=== PATIENT | male | born 1955 | race Caucasian/White ===

== ENCOUNTER → 2021-10-12 09:35 | Outpatient (CLI) | payer MEDICARE, SELFPAY ==
[2021-10-12 13:46] LABS: Influenza Control Positive
[2021-10-12 20:05] LABS: SARS-CoV-2 RNA PCR Positive
== END ==
PROVIDERS: PCP Internal Medicine; Visit Provider Internal Medicine
DX: U07.1 COVID-19 (principal)
CPT/HCPCS: 87804; C9803; U0003; U0005

== ENCOUNTER 2021-10-16 08:36 | Outpatient (RCR) | payer MEDICARE, SELFPAY ==
[2021-10-16 09:21] VITALS: BP 152/88; PULSE 91; RESP 18; TEMP 35.7; O2SAT 98
[2021-10-16] MEDS: ACETAMINOPHEN 325 MG TABLET 650 MG PO (09:33)
[2021-10-16] MEDS: diphenhydrAMINE HCl CAP 25 MG CAPSULE PO (09:33)
[2021-10-16] MEDS: FAMOTIDINE 20 MG TABLET PO (09:33)
[2021-10-16 10:55] VITALS: BP 121/76
--- NOTE | 2021-10-19 09:18 | PC.NURSE ---
Called Mr Aviles and he is feeling better, he has no other issues or concerns for us.
== END 2021-10-16 17:00 ==
LOC: AMCINF 08:36
PROVIDERS: PCP Internal Medicine; Visit Provider Internal Medicine Hematology & Oncology
DX: U07.1 COVID-19 (principal); I10 Essential (primary) hypertension
CPT/HCPCS: A9270; M0243; Q0243

== ENCOUNTER 2021-11-20 13:47 | Emergency (ER) | payer MEDICARE, SELFPAY ==
--- NOTE | ~2021-11-20 | XR_ITS ---
EXAMINATION: XR chest 2V EXAM DATE: 11/20/2021 16:13 INDICATION: Shortness of air. TECHNIQUE: Frontal and lateral projections of the chest obtained and reviewed. There is no prior harpal dy for comparison. FINDINGS: The lungs are clear. There are no pleural effusions. The cardiomediastinal silhouette is within normal limits. There is no pneumothorax suspected. The bones and soft tissues are unremarkab le. IMPRESSION: No acute cardiopulmonary findings. Reviewed, dictated and finalized at location A. USIONIST
--- NOTE | 2021-11-20 13:49 | ECG_ITS ---
Measurements Intervals [place] Rate: 124 P: 69 [place]: 161 QRS: -6 QRSD: 84 T: 56 QT: 317 QTc: 457 Interpretive Statements SINUS TACHYCARDIA DELAYED PRECORDIAL R/S TRANSITION BASELINE ARTIFACT- I, II, III, AVR, AVL, AVF, V1-V6 ABNORMAL ECG Electronically Signed On 11-20-2021 14:03:02 BUILDING PRINCIPAL by Harinder Eric D.O.
[2021-11-20 13:55] VITALS: BP 135/90; PULSE 122; RESP 18; TEMP 36.1; O2SAT 98
[2021-11-20] MEDS: LORazepam INJ (*CRX) 2 MG/ML VIAL 1 MG IV PUSH (14:37)
[2021-11-20] MEDS: SODIUM CHLORIDE 0.9% IV 1,000 ML 999 ML IV CONT (14:38)
[2021-11-20 15:50] VITALS: BP 160/94; PULSE 104; RESP 20; O2SAT 99
[2021-11-20 16:27] LABS: Basophils Absolute Auto 0.1 K/mm3 (0.0-0.1); Basophils Percent Auto 0.7 % (0.2-1.2); Hematocrit 42.9 % (42.0-52.0); Hemoglobin 14.7 g/dL (14.0-18.0); Immature Granulocyte Absolute 0.03 K/mm3 (0.00-0.031); Immature Granulocyte Percent A 0.3 % (0-0.5); Lymphocytes Absolute Auto 0.46 K/mm3 (0.9-3.2); Lymphocytes Percent Auto 4.5 % (18.3-44.2); Mean Corpuscular HGB Conc 34.3 g/dl (32-36); Mean Corpuscular Volume 93.3 fl (80-100); Mean Platelet Volume 9.5 fl (7.4-10.4); Monocytes Absolute Auto 0.7 K/mm3 (0.1-0.6); Monocytes Percent Auto 6.4 % (2.6-8.5); Neutrophils Absolute Auto 9.1 K/mm3 (1.3-6.7); Neutrophils Percent Auto 88.1 % (45.5-73.1); Platelet Count Result 230 k/mm3 (150-375); Red Cell Distribution Width 13.7 % (11.5-14.5); White Blood Count 10.3 K/mm3 (4.5-10.0)
[2021-11-20 16:45] LABS: Alanine Aminotransferase 46 U/L (4-50); Albumin Level 4.6 g/dL (3.5-5.1); Alkaline Phosphatase 123 U/L (38-126); Anion Gap 11 mmol/L (8-16); Aspartate Amino Transferase 73 U/L (17-59); Bilirubin,Total 1.2 mg/dL (0.2-1.3); Blood Urea Nitrogen 13 mg/dL (9-20); Calcium 9.5 mg/dL (8.4-10.2); Carbon Dioxide 20 mmol/L (22-30); Chloride 107 mmol/L (98-107); Estimated CRCL calculation 75 ml/min; Estimated Glomerular Filt Rate > 60; Glucose 131 mg/dL (65-110); Lipase 185 U/L (23-300); Potassium 3.9 mmol/L (3.4-5.0); Sodium 138 mmol/L (137-145)
[2021-11-20 16:55] VITALS: BP 173/104; PULSE 106; RESP 18; O2SAT 99
[2021-11-20 18:07] VITALS: BP 152/90; PULSE 105; RESP 18; O2SAT 100
--- NOTE | 2021-11-20 18:11 | ED.GENADULT ---
HPI - General Adult General Chief complaint: Unspecified Stated complaint: mult complaints Time Seen by Provider: 11/20/21 14:27 History of Present Illness HPI narrative: Patient is a 66-year-old male who presents ER. Initial complaint is that he had nausea and vomiting. The vomiting caused him to start becoming extremely short of breath. He has now shaking and tearful in the bed. Patient has had recent emotional distress due to the passing of his from COVID-19. He was ill from [facility] and developed Covid toes in his left foot. He received monoclonal antibodies and recovered well his ended up dying. She has been buried. He has been having bad days recently and has been going out to some land that he typically hunts on to ease his mind. He has not seen a psychiatrist. He is not on antidepressants. He is losing sleep and not eating well. Related Data Allergies Allergy/AdvReac Type Severity Reaction Status Date / Time No Known Allergies Allergy Verified 11/20/21 14:30 Review of Systems Review of Systems: All systems reviewed & are unremarkable except as noted in HPI and below Constitutional: Constitutional: Denies chills, Denies fever(s) and Denies weakness ENT: Denies nasal congestion and Denies sore throat Respiratory: Respiratory: Denies cough, Reports dyspnea and Denies wheezing Gastrointestinal: Gastrointestinal: Denies abdominal pain, Denies constipation, Denies diarrhea, Reports nausea and Reports vomiting Psychiatric: Psychiatric: Reports anxiety, Reports depression, Denies homicidal ideation and Denies suicidal ideation [facility] Past Medical History Medical History (Updated 11/20/21 @ 18:16 by Anuel Polo MD) Gastroesophageal reflux disease without esophagitis Hypertension Mixed hyperlipidemia Surgical History Surgical History History of sinus surgery Family History Family History Father Family history of heart disease in male family member before age 55, Onset Age: 75 Social History Social History Smoking packs per day: 1 Smoking cigarettes per day: 20.0 Years smoked: 20 Smoking pack-years: 20.00 Smoking status: Former smoker Tobacco type: cigarettes Second hand tobacco smoke exposure: Yes Smoking end date: 11/14/79 Alcohol intake: current Alcohol use details: SOCIAL Substance use: never Spiritual care concerns: No Exam Narrative: GENERAL: Anxious appearing, shaking, well-nourished. HEAD: Normocephalic, atraumatic. EYES: PERRL and EOMI. ENT: Mucous membranes moist. CHEST: Clear to auscultation. No respiratory distress. HEART: Regular rate and rhythm. Normal peripheral pulses. ABDOMEN: Soft, nontender, nondistended. EXTREMITIES: Normal range of motion. No edema. SKIN: Warm, dry, rash dorsal aspect left foot consistent with Covid toes. NEURO: Alert and oriented x3. PSYCH: Depressed mood coupled with anxiety with loss of interest. No SI/HI. No hallucinations. Course Course Emergency Course: Patient feels improved at this time with Ativan and fluids. Will provide antiemetics for home. We will also give hydrocortisone for patient's rash. Discussed that he should contact his PCP for further treatment evaluation of depression. He also was given a resource. His that he can reach out to as well. Vital Signs Vital signs: Vital Signs Temperature 97.0 F L 11/20/21 13:55 Pulse Rate 122 H 11/20/21 13:55 Respiratory Rate 18 11/20/21 13:55 Blood Pressure 135/90 11/20/21 13:55 Pulse Oximetry 98 11/20/21 13:55 Temperature 97.0 F L 11/20/21 13:55 Pulse Rate 105 H 11/20/21 18:07 Respiratory Rate 18 11/20/21 18:07 Blood Pressure 152/90 H 11/20/21 18:07 Pulse Oximetry 100 11/20/21 18:07 Medical Decision Making Vital Signs Vital Signs: Vital Signs Temp
== END 2021-11-20 18:46 | disposition home or self-care (01) ==
PROVIDERS: Emergency Provider Emergency Medicine; PCP Internal Medicine
DX: R11.2 Nausea with vomiting, unspecified (principal); F41.9 Anxiety disorder, unspecified; F32.A Depression, unspecified; Z86.16 Personal history of COVID-19; K21.9 Gastro-esophageal reflux disease without esophagitis; I10 Essential (primary) hypertension; E78.2 Mixed hyperlipidemia; Z87.891 Personal history of nicotine dependence; R00.0 Tachycardia, unspecified
CPT/HCPCS: 36415; 71046; 80053; 83690; 85025; 93005; 96361; 96374; 99284; J2060; J7030

== ENCOUNTER 2022-11-11 09:57 | Emergency (ER) | payer MEDICARE, SELFPAY ==
[2022-11-11 10:11] VITALS: BP 133/77; PULSE 87; RESP 16; TEMP 37.7; O2SAT 98
[2022-11-11 10:12] VITALS: BP 133/77; PULSE 87; RESP 16; TEMP 37.7; O2SAT 98
--- NOTE | 2022-11-11 10:53 | ED.URI ---
HPI - URI/Sore Throat General Chief Complaint: Upper Respiratory Infection Stated Complaint: Sore Throat,Fever Time Seen by Provider: 11/11/22 10:15 Source: patient Mode of arrival: ambulatory Limitations: no limitations History of Present Illness HPI Narrative: Jose F is a 67-year-old male patient presenting to the clinic today with complaints of sore throat, cough, fever, and nasal congestion since Tuesday. He reports he contacted his doctor and they told him to come in and be tested for COVID and strep. MD elicited complaint: fever, cough, sore throat and nasal congestion Related Data Allergies Allergy/AdvReac Type Severity Reaction Status Date / Time No Known Allergies Allergy Verified 11/11/22 10:11 Review of Systems Review of Systems: Pertinent positives per HPI. Patient denies any rash, headache, visual changes, dizziness, shortness of breath, chest pain, palpitations, nausea, vomiting, diarrhea, constipation, abdominal pain, or any urinary issues. PMFSH Past Medical History Medical History Gastroesophageal reflux disease without esophagitis Hypertension Mixed hyperlipidemia Surgical History Surgical History History of sinus surgery Family History Family History Father Family history of heart disease in male family member before age 55, Onset Age: 75 Social History Social History Smoking packs per day: 1 Smoking cigarettes per day: 20.0 Years smoked: 20 Smoking pack-years: 20.00 Smoking status: Former smoker Tobacco type: cigarettes Second hand tobacco smoke exposure: Yes Smoking end date: 11/14/79 Alcohol intake: current Alcohol use details: SOCIAL Substance use: never Spiritual care concerns: No Comments At the time of my signature, I reviewed and agree with the nursing past medical, surgical, social, and family history. There is no relevant family history pertinent to the patient complaint. Exam Narrative: General: Well-developed, well nourished, in no apparent distress Head: Normocephalic, atraumatic Eyes: Pupils equally round and reactive to light bilaterally, EOM intact, sclera and conjunctive clear, no discharge, lids normal Ears: TMs intact and clear, ear canals clear, no drainage, grossly hearing normal. Nose: Nares patent, clear nasal drainage discharge, no inflammation, no sinus tenderness. Mouth: Oral pharynx without lesions or masses, good dentition, MMM. oropharynx red Neck: Supple, trachea midline, mild enlargement of anterior or posterior cervical nodes, no thyroid masses or goiter palpable. Cardio: Regular rate and rhythm, s1 and s2 normal, no murmur appreciated. Resp: Clear to auscultation bilaterally, no rhonchi, rales, wheezing or rubs Course Course Emergency Course: Portions of this record may have been created with voice recognition software. Level of Care: Express Care Visit Vital Signs Vital signs: Vital Signs Temperature 37.7 C H 11/11/22 10:11 Pulse Rate 87 11/11/22 10:11 Respiratory Rate 16 11/11/22 10:11 Blood Pressure 133/77 11/11/22 10:11 Pulse Oximetry 98 11/11/22 10:11 Oxygen Delivery Room Air 11/11/22 10:11 Temperature 37.7 C H 11/11/22 10:12 Pulse Rate 87 11/11/22 10:12 Respiratory Rate 16 11/11/22 10:12 Blood Pressure 133/77 11/11/22 10:12 Pulse Oximetry 98 11/11/22 10:12 Oxygen Delivery Room Air 11/11/22 10:12 Vital signs reviewed MDM - URI/Sore Throat MDM Narrative Medical decision making narrative: At the time of visit patient is resting comfortably on the exam table. COVID and strep test were negative. Flu test was performed and was negative in the clinic today. I suspect the patient has URI/viral syndrome/pharyngitis. Supportive
== END 2022-11-11 11:23 | disposition home or self-care (01) ==
PROVIDERS: Emergency Provider Nurse Practitioner Family; PCP Internal Medicine
DX: J06.9 Acute upper respiratory infection, unspecified (principal); B34.9 Viral infection, unspecified; J02.9 Acute pharyngitis, unspecified; Z20.822 Contact with and (suspected) exposure to COVID-19; Z87.891 Personal history of nicotine dependence; K21.9 Gastro-esophageal reflux disease without esophagitis; I10 Essential (primary) hypertension; E78.2 Mixed hyperlipidemia
CPT/HCPCS: 87426; 87804; 87880; 99213; C9803; G0463

== ENCOUNTER 2023-06-22 07:23 | Inpatient (IN) | payer MEDICARE, SELFPAY ==
[2023-06-22] VITALS (15 sets, daily range): BP systolic 131–159; BP diastolic 73–87; PULSE 75–111; RESP 18–24; TEMP 36.1–36.9; O2SAT 97–100; BMI 28.8
--- NOTE | 2023-06-22 07:42 | ED.ALCOHOL ---
HPI - Alcohol General Chief Complaint: Alcohol Stated Complaint: N/V Time Seen by Provider: 06/22/23 07:28 Source: patient and family Limitations: no limitations History of Present Illness HPI narrative: 68 years old white male came to the emergency room with his daughter with not feeling well, nausea, vomiting, jittery feeling. Last alcohol intake was last night. Patient decided to quit drinking alcohol last night. Related Data Home Medications Medication Instructions Recorded Confirmed esomeprazole magnesium 20 mg 40 mg PO DAILY 05/23/23 06/22/23 tablet,delayed release Allergies Allergy/AdvReac Type Severity Reaction Status Date / Time No Known Allergies Allergy Verified 05/23/23 08:12 [facility] Past Medical History Medical History Alcohol abuse Anxiety disorder Gastroesophageal reflux disease Hypertension Mixed hyperlipidemia Surgical History Surgical History History of sinus surgery Family History Family History Father Family history of heart disease in male family member before age 55, Onset Age: 75 Hypertension Other , 10/2021 No problems noted. Mother Acute myocardial infarction Social History Social History Social History: Surrogate medical decision maker: Code status: Smoking packs per day: 1 Smoking cigarettes per day: 20.0 Years smoked: 20 Smoking pack-years: 20.00 Smoking status: Former smoker Tobacco type: cigarettes Second hand tobacco smoke exposure: Yes Smoking end date: 11/14/77 Alcohol intake: current Drinks per week: 10 Substance use: never Substance use type: does not use Lack of Transportation: No Lack of Food: Never True Current Housing: I Have Housing Concerned About Future Housing: No Difficulty Paying Gas/Electric Bills: No Difficulty Paying for Meds: No Currently Unemployed: No Education: High School Diploma/GED Difficulty w/ Childcare or Family Care: No Living arrangements: with family Spiritual care concerns: No Exam Narrative: General appearance: Well-developed, well-nourished, restless Skin: Normal color Head: Normocephalic, nontraumatic Eyes: Clear conjunctiva ENT: Oropharynx normal, ears normal, nose normal Neck: Supple, nontender Chest and respiratory: Airway patent, no respiratory distress, no accessory muscle use Heart: Regular rate/rhythm Abdomen: Soft, nontender, no organomegaly, quiet bowel sounds Vascular: Normal peripheral pulses, normal capillary refill. Musculoskeletal: Normal range of motion, nontender back Neurologic: Alert and oriented ?3, WELLNESS RN is normal as tested, no gross motor deficit , Restless Course Reevaluation(s) Reevaluation #1: Feeling much better after IV fluid and Ativan Date: 06/22/23 Time: 19:55 Consultations Consultation #1: Dr. Funez Date: 06/22/23 Time: 19:58 Vital Signs Vital signs: Vital Signs Pulse Rate 92 06/22/23 07:34 Respiratory Rate 24 H 06/22/23 07:34 Blood Pressure 153/87 H 06/22/23 07:34 Pulse Oximetry 100 06/22/23 07:34 Oxygen Delivery Room Air 06/22/23 07:34 Temperature 36.8 C 06/22/23 16:00 Pulse Rate 82 06/22/23 18:00 Respiratory Rate 18 06/22/23 16:00 Blood Pressure 146/84 H 06/22/23 16:00 Pulse Oximetry 97 06/22/23 16:00 Oxygen Delivery Room Air 06/22/23 07:34 MDM - Alcohol MDM Narrative Medical decision making narrative: 68 years old white male came to the emergency room with alcohol wit
--- NOTE | 2023-06-22 07:43 | ECG_ITS ---
Measurements Intervals [place] Rate: 82 P: 59 MD: 166 QRS: 7 QRSD: 90 T: 52 QT: 406 QTc: 475 Interpretive Statements SINUS RHYTHM POSSIBLE LEFT ATRIAL ENLARGEMENT [-0.1mV P WAVE IN V1/V2] BORDERLINE ECG COMPARED TO ECG 11/20/2021 13:53:51 SINUS RHYTHM NOW PRESENT Electronically Signed On 06-22-2023 9:26:25 CDT by Haider Olivares M.D.
[2023-06-22 08:14] LABS: Basophils Percent Auto 0.5 % (0.2-1.2); Eosinophils Percent Auto 0.4 % (0-4.4); Hemoglobin 14.7 g/dL (14.0-18.0); Immature Granulocyte Absolute 0.06 K/mm3 (0.00-0.031); Immature Granulocyte Percent A 0.7 % (0-0.5); Lymphocytes Absolute Auto 0.73 K/mm3 (0.9-3.2); Mean Corpuscular HGB Conc 36.8 g/dl (32-36); Mean Corpuscular Hemoglobin 33.3 pg (26-34); Mean Corpuscular Volume 90.5 fl (80-100); Mean Platelet Volume 8.8 fl (7.4-10.4); Monocytes Percent Auto 12.5 % (2.6-8.5); Neutrophils Absolute Auto 6.2 K/mm3 (1.3-6.7); Neutrophils Percent Auto 76.9 % (45.5-73.1); Platelet Count Result 333 k/mm3 (150-375); Red Blood Count 4.42 M/mm3 (4.6-6.20); Red Cell Distribution Width 11.8 % (11.5-14.5); White Blood Count 8.1 K/mm3 (4.5-10.0)
[2023-06-22 08:23] LABS: Ethanol 48 mg/dL (<10)
[2023-06-22 08:25] LABS: INR 0.9; Prothrombin Time 12.3 Seconds (11.1-14.7)
[2023-06-22 08:26] LABS: Partial Thromboplastin Time 23.4 SECONDS (22.3-36.8)
[2023-06-22 08:37] LABS: Alanine Aminotransferase 51 U/L (6-50); Albumin Level 4.4 g/dL (3.5-5.1); Alkaline Phosphatase 126 U/L (38-126); Anion Gap 16 mmol/L (8-16); Aspartate Amino Transferase 86 U/L (17-59); Bilirubin,Total 1.2 mg/dL (0.2-1.3); Blood Urea Nitrogen 6 mg/dL (9-20); Carbon Dioxide 16 mmol/L (22-30); Chloride 86 mmol/L (98-107); Estimated CRCL calculation 149 ml/min; Estimated Glomerular Filt Rate > 60; Glucose 103 mg/dL (65-110); Magnesium 1.8 mg/dL (1.6-2.3); Potassium 3.9 mmol/L (3.4-5.0); Sodium 118 mmol/L (137-145)
[2023-06-22] MEDS: LORazepam INJ (*CRX) 2 MG/ML VIAL IV PUSH (08:40)
[2023-06-22] MEDS: ONDANSETRON INJ 4 MG/2 ML VIAL IV PUSH (08:40)
[2023-06-22 09:33] LABS: Appearance Urine Clear (Clear); Bacteria Urine None Seen /hpf; Bilirubin Urine Negative (Negative); Blood Urine Negative (Negative); Color Urine Yellow (Yellow); Glucose Urine UA Negative (Negative); Ketones Urine 2+ mg/dL (Negative); Leukocyte Esterase Ur Negative LEU/UL (Negative); Nitrate Urine Negative (Negative); Non Pathogenic Casts 0-2; Protein Urine Trace mg/dL (Negative); RBC Urine 0-2 /hpf (0-2); Specific Grav Ur 1.012 (1.001-1.035); Squamous Epithelial Cell Urine None seen /hpf (Few); WBC Urine 0-5 /hpf; pH Urine 6.5 (5.0-9.0)
[2023-06-22 09:50] LABS: Add Urine Microscopic? YES
--- NOTE | 2023-06-22 10:17 | ADMGEN ---
This patient, Jose F Aviles, was admitted to IMU Room 205-01. Patient/family oriented to hospital policies and general routines including ID bracelet, bed and alarms, visiting hours, pain management, procedures, bathroom and other care routines, personal items, smoking policy, room service/diet, and visiting hours. Information on how to activate the Rapid Response Team has been discussed. Patient/Family are encouraged to report perceived risks to care and to ask questions if they do not understand what they are told or what they should do.
[2023-06-22] MEDS: SODIUM CHLORIDE 0.9% IV 1,000 ML 250 ML IV CONT (11:14)
[2023-06-22 11:57] LABS: Glucose Point of Care 103 mg/dl (65-105)
[2023-06-22 12:04] LABS: Sodium 122 mmol/L (137-145)
--- NOTE | 2023-06-22 12:15 | PM.CNNEP ---
Assessment and Plan Assessment and plan (1) Hyponatremia: Code(s): E87.1 - Hypo-osmolality and hyponatremia Status: Acute Assessment and Plan: acute issue suspect related to alcohol intake and associated volume depletion however, use of SSRI could be a contributing factor sodium improving with IVF hydration goal of therapy is a rate of change in sodium of no more than 6 - 8mmol/L in 24 hours check TSH, cortisol, SPEP, UPEP, and serum/urine osmolality follow trend of serial sodium levels (2) Alcohol withdrawal: Qualifiers: Complication of substance-induced condition: with unspecified complication Qualified Code(s): F10.939 - Alcohol use, unspecified with withdrawal, unspecified Code(s): F10.939 - Alcohol use, unspecified with withdrawal, unspecified Status: Acute Assessment and Plan: started on scheduled Librium CIWA protocol initiated (3) Hypertension: Qualifiers: Hypertension type: essential hypertension Qualified Code(s): I10 - Essential (primary) hypertension Code(s): I10 - Essential (primary) hypertension Status: Chronic Assessment and Plan: reasonable control at this time follow trend of hemodynamics (4) Anxiety disorder: Code(s): F41.9 - Anxiety disorder, unspecified Status: Chronic Assessment and Plan: continue escitalopram I will continue to follow the patient with you while he remains hospitalized and make further recommendations as needed. Thank you for allowing me to participate in the care of this patient. History of Present Illness Reason for Consult Consult date: 06/22/23 Reason for consult: hyponatremia Chief Complaint Chief complaint: alcohol withdrawl,hyponatremia History of Present Illness Narrative: The patient is a 68-year-old male with a past medical history as outlined below who presented to [facility] Emergency room earlier today for further evaluation of nausea and vomiting. The patient has a known history of excessive alcohol intake /alcohol abuse for last few years. He has started to realize that his alcohol intake is a problem and has been attempting to quit alcohol altogether. He recently started going to a meetings in the hopes of doing this. He had planned to slowly taper himself all all call and his reported last drink was the evening before presentation to the ER. Sometime earlier this morning, he was awakened with diaphoresis shaking/tremors, nausea and vomiting, and associated dry heaves. As the symptoms continued to progress, his family called 911 and EMS transported him to the ER for further assessment. Workup and evaluation in the emergency room demonstrated patient be hemodynamically stable. He received IV Ativan for his symptoms with significant improvement. Routine blood tests were done which were significant for a sodium of 118 and no other critical electrolyte abnormalities with stability in his renal function although his LFTs were marginally elevated. It was felt his symptoms were related to alcohol withdrawal and he was given banana bag and started on IV fluids with normal saline. Given his constellation of symptoms as well as the concerns for alcohol withdrawal, he was admitted the hospital for further evaluation and therapy. Since his admission, he reports improvement in his overall symptoms both with the a for mentioned IV Ativan and after receiving Librium as part of the alcohol withdrawal protocol. Renal consultation was requested due to his acute hyponatremia. From review of his records, the patient has never had any issues or problems with hyponatremia until currently. In spite of the hyponatremia, he does not appear to have any significant neurological sequela a and as already mentioned, most of his admission symptoms are more treatable to alcohol withdrawal. Just with the IV fluids that he has already received his sodium level has alread
[2023-06-22 12:29] LABS: Creatinine Urine 15.1 mg/dL; Total Protein Urine Random 15 mg/dL; Ur Ttl Prot Creatinine Ratio 0.99 mg/mg (0-0.20)
[2023-06-22 12:32] LABS: Sodium Urine Random 18 meq/L; Urea Random Urine < 67 MG/DL
--- NOTE | 2023-06-22 13:33 | PM.IMHP ---
H&P: HPI History of Present Illness Date/Time: 06/22/23 14:15 Chief Complaint: Nausea and vomiting. Narrative: This is a 68-year-old male with history of alcohol abuse, hypertension, hyperlipidemia, anxiety, and depression who presented to the emergency department via EMS from home for evaluation of nausea and vomiting. The patient provides the following history. He has been drinking between 6 and 12 beers a day for a couple of years and recently has started to realize that he is drinking in excess and he has started to go to . He has plans to gradually taper himself off of alcohol. His last drink was yesterday evening and sometime in the middle of the night he was wakened with sweats, shaking, nausea, and vomiting followed by dry heaves. His vital signs were stable on arrival to the emergency department. He received 2 mg IV lorazepam for his symptoms with improvement. Labs were significant for a sodium of 118, potassium 3.9, chloride 86, carbon dioxide 16, AST 86, ALT 51, magnesium 1.8. He was given a banana bag and was started on normal saline thereafter. He is being admitted in this setting for further treatment and evaluation of all withdrawal and hyponatremia. At the time my evaluation he is feeling pretty good after receiving Librium. He is not having any significant shakes at this time, denies anxiety, and has not had any further episodes of nausea or vomiting. He has not experienced hallucinations. He has no history of alcohol withdrawal seizures. Review of Systems Review of Systems: Twelve systems were reviewed. No fever or chills. No recent cold or flu symptoms. No chest pain shortness a breath. No hematemesis, melena, or hematochezia. No dysuria. Except as documented, all other systems were reviewed and are negative. [facility] Past Medical History Medical History Alcohol abuse Anxiety disorder Gastroesophageal reflux disease Hypertension Mixed hyperlipidemia Surgical History Surgical History History of sinus surgery Family History Family History Father Family history of heart disease in male family member before age 55, Onset Age: 75 Hypertension Other , 10/2021 No problems noted. Mother Acute myocardial infarction Social History Social History (Updated 06/22/23 @ 23:37 by Era Anna PA-C) Social History: Surrogate medical decision maker: Portia Gaviria, daughter. Code status: Full code. Smoking packs per day: 1 Smoking cigarettes per day: 20.0 Years smoked: 20 Smoking pack-years: 20.00 Smoking status: Former smoker Tobacco type: cigarettes Second hand tobacco smoke exposure: Yes Smoking end date: 11/14/77 Alcohol intake: current Alcohol use details: 6 to 12 beers a day. Substance use: never Substance use type: does not use Lack of Transportation: No Lack of Food: Never True Current Housing: I Have Housing Concerned About Future Housing: No Difficulty Paying Gas/Electric Bills: No Difficulty Paying for Meds: No Currently Unemployed: No Education: High School Diploma/GED Difficulty w/ Childcare or Family Care: No Additional living arrangements comments: Lives in [place]. Additional occupation/education comments: Retired. Spiritual care concerns: No Meds Home Medications and Allergies Home Medications Medication Instructions Recorded Confirmed Type verapamil 240 mg tablet,extended 240 mg PO Q12H #180 tabs 10/20/22 06/22/23 Rx release lisinopril 30 mg tablet 30 mg PO DAILY #100 tabs 03/31/23 06/22/23 Rx rosuvastatin 40 mg tablet (Crestor) 40 mg PO DAILY #100 tabs 03/31/23 06/22/23 Rx escitalopram oxalate 20 mg tablet 20 mg PO DAILY #90 tabs 04/25/23 06/22/23 Rx cyclobenzaprine 5 mg tablet 5 mg PO QHS PRN muscle spasm #30 05/23/23 06/22/23 R
[2023-06-22] MEDS: chlordiazePOXIDE (*CRX) 25 MG CAPSULE PO ×2 (14:46→21:21)
[2023-06-22] MEDS: ESCITALOPRAM OXALATE 10 MG TABLET 20 MG PO (14:50)
[2023-06-22] MEDS: PANTOPRAZOLE 40 MG TABLET PO (14:51)
[2023-06-22 16:02] LABS: Anion Gap 10 mmol/L (8-16); Blood Urea Nitrogen 7 mg/dL (9-20); Carbon Dioxide 19 mmol/L (22-30); Chloride 95 mmol/L (98-107); Estimated CRCL calculation 82 ml/min; Estimated Glomerular Filt Rate > 60; Glucose 103 mg/dL (65-110); Magnesium 2.3 mg/dL (1.6-2.3); Potassium 4.1 mmol/L (3.4-5.0); Sodium 124 mmol/L (137-145)
[2023-06-22] MEDS: ACETAMINOPHEN 325 MG TABLET 650 MG PO (16:37)
[2023-06-22 20:24] LABS: Sodium 125 mmol/L (137-145)
[2023-06-22] MEDS: VERAPAMIL HCL ER 240 MG TABLET.ER PO (21:21)
[2023-06-23] VITALS (15 sets, daily range): BP systolic 125–151; BP diastolic 71–91; PULSE 60–100; RESP 16–20; TEMP 36.1–37.1; O2SAT 96–100
[2023-06-23 01:06] LABS: Sodium 129 mmol/L (137-145)
[2023-06-23 04:50] LABS: Hematocrit 39.7 % (42.0-52.0); Hemoglobin 13.6 g/dL (14.0-18.0); Mean Corpuscular HGB Conc 34.3 g/dl (32-36); Mean Corpuscular Volume 96.4 fl (80-100); Platelet Count Result 299 k/mm3 (150-375); Red Blood Count 4.12 M/mm3 (4.6-6.20); Red Cell Distribution Width 12.6 % (11.5-14.5); White Blood Count 6.5 K/mm3 (4.5-10.0)
[2023-06-23 05:03] LABS: Anion Gap 5 mmol/L (8-16); Blood Urea Nitrogen 10 mg/dL (9-20); Calcium 8.8 mg/dL (8.4-10.2); Carbon Dioxide 29 mmol/L (22-30); Chloride 96 mmol/L (98-107); Estimated CRCL calculation 67 ml/min; Estimated Glomerular Filt Rate > 60; Glucose 95 mg/dL (65-110); Potassium 3.8 mmol/L (3.4-5.0); Sodium 130 mmol/L (137-145)
[2023-06-23 05:04] LABS: Alanine Aminotransferase 50 U/L (6-50); Albumin Level 3.8 g/dL (3.5-5.1); Alkaline Phosphatase 93 U/L (38-126); Aspartate Amino Transferase 77 U/L (17-59); Bilirubin,Total 1.7 mg/dL (0.2-1.3); Magnesium 2.4 mg/dL (1.6-2.3)
[2023-06-23] MEDS: chlordiazePOXIDE (*CRX) 25 MG CAPSULE PO ×3 (06:17→21:40)
[2023-06-23] MEDS: DEXTROSE 5% IN WATER 500 ML 250 ML IV CONT (06:42)
[2023-06-23] MEDS: ACETAMINOPHEN 325 MG TABLET 650 MG PO ×3 (06:43→23:18)
[2023-06-23 10:04] LABS: Sodium 127 mmol/L (137-145)
[2023-06-23] MEDS: ESCITALOPRAM OXALATE 10 MG TABLET 20 MG PO (10:47)
[2023-06-23] MEDS: FOLIC ACID 1 MG TABLET PO (10:47)
[2023-06-23] MEDS: VERAPAMIL HCL ER 240 MG TABLET.ER PO ×2 (10:47→20:20)
[2023-06-23] MEDS: ROSUVASTATIN 10 MG TABLET 40 MG PO (10:47)
[2023-06-23] MEDS: THIAMINE HCL 100 MG TABLET PO (10:47)
[2023-06-23] MEDS: PANTOPRAZOLE 40 MG TABLET PO (10:48)
[2023-06-23] MEDS: lisinopriL 10 MG TABLET 30 MG PO (10:48)
--- NOTE | 2023-06-23 12:02 | PM.PNNEP ---
Progress Note: A&P Assessment and Plan (1) Hyponatremia: Code(s): E87.1 - Hypo-osmolality and hyponatremia Status: Acute Assessment and Plan: slow improvement noted acute issue suspect related to alcohol intake and associated volume depletion however, use of SSRI could be a contributing factor sodium improving s/p IVF hydration evaluation to date: TSH and cortisol okay SPEP/UPEP pending urine electrolytes prerenal follow trend of serial sodium levels (2) Alcohol withdrawal: Qualifiers: Complication of substance-induced condition: with unspecified complication Qualified Code(s): F10.939 - Alcohol use, unspecified with withdrawal, unspecified Code(s): F10.939 - Alcohol use, unspecified with withdrawal, unspecified Status: Acute Assessment and Plan: on scheduled Librium CIWA protocol initiated (3) Hypertension: Qualifiers: Hypertension type: essential hypertension Qualified Code(s): I10 - Essential (primary) hypertension Code(s): I10 - Essential (primary) hypertension Status: Chronic Assessment and Plan: reasonable control at this time follow trend of hemodynamics (4) Anxiety disorder: Code(s): F41.9 - Anxiety disorder, unspecified Status: Chronic Assessment and Plan: continue escitalopram Would not be opposed to discharge tomorrow if sodium continues to improve and patient is otherwise medically stable. Will continue to follow. Subjective Date/time seen: 06/23/23 12:02 Interval history: Follow-up for acute hyponatremia. Due to concerns of overcorrection of his sodium, the patient did receive D5W IVFs earlier this morning; sodium level has improved with current therapy/interventions; no apparent distress noted; no other issues/events overnight. Exam Narrative: General: WD/WN male in NAD Heart: normal S1 and S2; no rub Lungs: clear to auscultation Abdomen: soft, nontender, nondistended, positive bowel sounds Extremities: no cyanosis or clubbing; no edema Skin: warm and dry Objective Data Vital Signs Vital Signs: Vital Signs Temp Pulse Resp BP Pulse Ox O2 Del Method FiO2 06/23/23 12:00 98.6 F 90 20 135/91 H 99 06/23/23 08:00 Room Air 06/23/23 10:00 86 06/23/23 08:00 100 06/23/23 08:00 98.7 F 65 16 151/83 H 98 06/23/23 06:00 85 06/23/23 04:00 61 06/23/23 03:26 97.5 F L 87 18 140/71 97 06/23/23 02:00 60 06/23/23 00:00 64 06/23/23 00:09 97.2 F L 78 18 151/82 H 100 06/22/23 21:00 75 100 Room Air 21 06/22/23 22:00 75 06/22/23 20:00 87 06/22/23 20:00 97.0 F L 84 18 159/83 H 100 06/22/23 18:00 82 06/22/23 16:00 85 06/22/23 14:00 88 06/22/23 16:00 98.2 F 111 H 18 146/84 H 97 Intake/Output Intake/Output: Intake & Output 06/20/23 06/21/23 06/22/23 06/23/23 23:59 23:59 23:59 23:59 Intake Total 250 720 Output Total 3050 400 Balance -2800 320 Meds/Results Medications: Active Medications Generic Name Dose Route Start Last Admin Trade Name Freq PRN Reason Stop Dose Admin Acetaminophen 650 mg 06/22/23 15:01 06/23/23 06:43 Acetaminophen 325 Mg Tablet PO 650 mg Q6H PRN Administration Mild Pain (1-3) or Fever Chlordiazepoxide HCl 25 mg 06/22/23 14:00 06/23/23 06:17 Chlordiazepoxide (*Crx) 25 Mg Capsule PO 25 mg Q8HR YULI Administration Escitalopram Oxalate 20 mg 06/22/23 15:00 06/23/23 10:47 Escitalopram Oxalate 10 Mg Tablet PO 20 mg DAILY YULI Administration Folic Acid 1 mg 06/23/23 09:00 06/23/23 10:47 Folic Acid 1 Mg Tablet PO 1 mg DAILY YULI Administration Lisinopril 30 mg 06/23/23 09:00 06/23/23 10:48 Lisinopril 10 Mg Tablet PO 30 mg DAILY YULI Administration Lorazepam 1 mg 06/22/23 08:52 Lorazepam Inj (*Crx) 2 Mg/Ml Via
[2023-06-23 15:14] LABS: Sodium 130 mmol/L (137-145)
--- NOTE | 2023-06-23 16:51 | PM.IMPN ---
Progress Note: A&P Assessment and Plan (1) Hyponatremia: Code(s): E87.1 - Hypo-osmolality and hyponatremia Status: Acute (2) Alcohol withdrawal: Qualifiers: Complication of substance-induced condition: with unspecified complication Qualified Code(s): F10.939 - Alcohol use, unspecified with withdrawal, unspecified Code(s): F10.939 - Alcohol use, unspecified with withdrawal, unspecified Status: Acute (3) Alcoholic ketoacidosis: Code(s): E87.29 - Other acidosis Status: Acute (4) Elevated LFTs: Code(s): R79.89 - Other specified abnormal findings of blood chemistry Status: Acute (5) Hypertension: Qualifiers: Hypertension type: essential hypertension Qualified Code(s): I10 - Essential (primary) hypertension Code(s): I10 - Essential (primary) hypertension Status: Acute (6) Gastroesophageal reflux disease: Code(s): K21.9 - Gastro-esophageal reflux disease without esophagitis Status: Acute (7) Anxiety disorder: Code(s): F41.9 - Anxiety disorder, unspecified Status: Acute Plan 68-year-old male with history of alcohol abuse hypertension hyperlipidemia anxiety and depression presents to the ED with nausea and vomiting. He has been drinking 6-12 beers a day for couple years recently started elevated that his drinking in excess and started to go to a. He plan to gradually taper himself off alcohol. His last drink was Tuesday and sometimes in the night he woke up with sweats shaking nausea vomiting with dry heaves. He received 2 mg of IV lorazepam which improved his symptoms. Labs are significant for sodium 118 potassium of 3.9 chloride of 86 carbon dioxide of 16 AST 86 ALT 51 magnesium 1.8. He has been started on banana bag and was admitted in this setting. He has also been started on Librium. He sodium level has improved since admission nephrology has been consulted. Hyponatremia likely due to beer potomania. For alcohol withdrawal he is on CIWA protocol along with scheduled Librium. Elevated LFTs likely due to alcohol use. Abdominal exam is benign. Recheck labs in a.m. continue Librium as ordered and slow taper over the next few days. Subjective Date/time seen: 06/23/23 16:51 Interval history: 68-year-old male with history of alcohol abuse hypertension hyperlipidemia anxiety and depression presents to the ED with nausea and vomiting. He has been drinking 6-12 beers a day for couple years recently started elevated that his drinking in excess and started to go to a. He plan to gradually taper himself off alcohol. His last drink was Tuesday and sometimes in the night he woke up with sweats shaking nausea vomiting with dry heaves. He received 2 mg of IV lorazepam which improved his symptoms. Labs are significant for sodium 118 potassium of 3.9 chloride of 86 carbon dioxide of 16 AST 86 ALT 51 magnesium 1.8. He has been started on banana bag and was admitted in this setting. He has also been started on Librium. He sodium level has improved since admission nephrology has been consulted. Hyponatremia likely due to beer potomania. For alcohol withdrawal he is on CIWA protocol along with scheduled Librium. Elevated LFTs likely due to alcohol use. Abdominal exam is benign. Recheck labs in a.m. continue Librium as ordered and slow taper over the next few days. Review of Systems Review of Systems: All systems reviewed & are unremarkable except as noted in HPI and below Exam Narrative: General: Well-developed, nontoxic-appearing male supine in bed in no distress. HEENT: PERRL, EOMI. Sclera anicteric. Tacky mucous membranes. Neck: Supple. Respiratory: Lungs are clear to auscultation bilaterally. Cardiovascular: Regular rate and rhythm with S1-S2. Gastrointestinal: Abdomen is soft, nontender, and nondistended with positive bowel sounds. Skin: Warm and dry. Bruise of over the right knee. Extremities: No cyanosis, clubb
[2023-06-24] VITALS (10 sets, daily range): BP systolic 115–134; BP diastolic 62–76; PULSE 52–84; RESP 14–18; TEMP 36.2–36.7; O2SAT 97–99
[2023-06-24 04:46] LABS: Basophils Absolute Auto 0.1 K/mm3 (0.0-0.1); Basophils Percent Auto 1.3 % (0.2-1.2); Eosinophils Absolute Auto 0.2 K/mm3 (0-0.3); Eosinophils Percent Auto 3.3 % (0-4.4); Hemoglobin 12.8 g/dL (14.0-18.0); Immature Granulocyte Absolute 0.09 K/mm3 (0.00-0.031); Immature Granulocyte Percent A 1.3 % (0-0.5); Lymphocytes Absolute Auto 1.17 K/mm3 (0.9-3.2); Lymphocytes Percent Auto 16.9 % (18.3-44.2); Mean Corpuscular HGB Conc 33.7 g/dl (32-36); Mean Corpuscular Hemoglobin 33.2 pg (26-34); Mean Corpuscular Volume 98.4 fl (80-100); Monocytes Absolute Auto 1.2 K/mm3 (0.1-0.6); Monocytes Percent Auto 17.1 % (2.6-8.5); Neutrophils Absolute Auto 4.2 K/mm3 (1.3-6.7); Neutrophils Percent Auto 60.1 % (45.5-73.1); Platelet Count Result 266 k/mm3 (150-375); Red Blood Count 3.86 M/mm3 (4.6-6.20); Red Cell Distribution Width 12.7 % (11.5-14.5); White Blood Count 6.9 K/mm3 (4.5-10.0)
[2023-06-24 05:03] LABS: Alanine Aminotransferase 41 U/L (6-50); Albumin Level 3.6 g/dL (3.5-5.1); Alkaline Phosphatase 88 U/L (38-126); Anion Gap 4 mmol/L (8-16); Aspartate Amino Transferase 52 U/L (17-59); Bilirubin,Total 1.7 mg/dL (0.2-1.3); Blood Urea Nitrogen 14 mg/dL (9-20); Calcium 8.6 mg/dL (8.4-10.2); Carbon Dioxide 28 mmol/L (22-30); Chloride 99 mmol/L (98-107); Estimated CRCL calculation 67 ml/min; Estimated Glomerular Filt Rate > 60; Glucose 98 mg/dL (65-110); Magnesium 2.2 mg/dL (1.6-2.3); Potassium 3.6 mmol/L (3.4-5.0); Sodium 131 mmol/L (137-145)
[2023-06-24] MEDS: chlordiazePOXIDE (*CRX) 25 MG CAPSULE PO ×2 (06:10→14:04)
[2023-06-24] MEDS: PANTOPRAZOLE 40 MG TABLET PO (08:23)
[2023-06-24] MEDS: VERAPAMIL HCL ER 240 MG TABLET.ER PO (08:23)
[2023-06-24] MEDS: lisinopriL 10 MG TABLET 30 MG PO (08:24)
[2023-06-24] MEDS: FOLIC ACID 1 MG TABLET PO (08:24)
[2023-06-24] MEDS: ESCITALOPRAM OXALATE 10 MG TABLET 20 MG PO (08:24)
[2023-06-24] MEDS: ROSUVASTATIN 10 MG TABLET 40 MG PO (08:24)
[2023-06-24] MEDS: THIAMINE HCL 100 MG TABLET PO (08:24)
[2023-06-24] MEDS: ACETAMINOPHEN 325 MG TABLET 650 MG PO (11:59)
--- NOTE | 2023-06-24 13:33 | PM.DS ---
DS: Admitting Diagnosis Discharge Date 06/24/2023 Admitting Diagnosis Alcohol withdrawal DS: Discharge Diagnosis Discharge Diagnosis (1) Hyponatremia: Code(s): E87.1 - Hypo-osmolality and hyponatremia Status: Acute (2) Alcohol withdrawal: Qualifiers: Complication of substance-induced condition: with unspecified complication Qualified Code(s): F10.939 - Alcohol use, unspecified with withdrawal, unspecified Code(s): F10.939 - Alcohol use, unspecified with withdrawal, unspecified Status: Acute (3) Alcoholic ketoacidosis: Code(s): E87.29 - Other acidosis Status: Acute (4) Elevated LFTs: Code(s): R79.89 - Other specified abnormal findings of blood chemistry Status: Acute (5) Hypertension: Qualifiers: Hypertension type: essential hypertension Qualified Code(s): I10 - Essential (primary) hypertension Code(s): I10 - Essential (primary) hypertension Status: Chronic (6) Gastroesophageal reflux disease: Code(s): K21.9 - Gastro-esophageal reflux disease without esophagitis Status: Acute (7) Anxiety disorder: Code(s): F41.9 - Anxiety disorder, unspecified Status: Chronic DS: Summary Hospital Course Hospital Course: 68-year-old male with history of alcohol abuse hypertension hyperlipidemia anxiety and depression presents to the ED with nausea and vomiting.? He has been drinking 6-12 beers a day for couple years recently started elevated that his drinking in excess and started to go to .? He plan to gradually taper himself off alcohol.? His last drink was Tuesday and sometimes in the night he woke up with sweats shaking nausea vomiting with dry heaves. He came to the ER with these symptoms. He received 2 mg of IV lorazepam which improved his symptoms.? Labs are significant for sodium 118 potassium of 3.9 chloride of 86 carbon dioxide of 16 AST 86 ALT 51 magnesium 1.8.? He has been started on banana bag and was admitted in this setting.? He has also been started on Librium for his alcohol withdrawal.? His sodium level has improved since admission nephrology has been consulted.? Hyponatremia likely due to beer potomania.? For alcohol withdrawal he is on CIWA protocol along with scheduled Librium.? Elevated LFTs likely due to alcohol use.? Abdominal exam is benign.? Sodium level has improved. Nephrology okay with discharge. continue Librium as ordered and slow taper over the next few days. He has also looked into resources for alcohol abuse and will be following up as an outpatient basis. Those resources were provided during the hospital stay. Time Spent with Patient Time attestation: Total time spent providing and/or coordinating discharge services: 35 minutes Exam Narrative: General: Well-developed, nontoxic-appearing male supine in bed in no distress. HEENT: PERRL, EOMI. Sclera anicteric. Tacky mucous membranes. Neck: Supple. Respiratory: Lungs are clear to auscultation bilaterally. Cardiovascular: Regular rate and rhythm with S1-S2. Gastrointestinal: Abdomen is soft, nontender, and nondistended with positive bowel sounds. Skin: Warm and dry. Bruise of over the right knee. Extremities: No cyanosis, clubbing, or edema. Radial and pedal pulses intact. Neurological: Alert and oriented. Cranial nerves 2-12 are grossly intact. Speech is clear. No tongue fasciculations. Faint tremors of the fingers. No gross focal deficits to casual conversation. Psychiatric: Pleasant and cooperative with normal mood and affect. Judgment and insight intact. DS: Data Data Completed and Pending Labs on day of discharge: Labs from last 24 hours 06/24/23 06/23/23 04:29 14:57 WBC 6.9 RBC 3.86 L Hgb 12.8 L Hct 38.0 L MCV 98.4 MCH 33.2 MCHC 33.7 RDW 12.7 Plt Count 266 MPV 9.0 Immature Gran % (Auto) 1.3 H Neut % (Auto) 60.1 Lymph % (Auto) 16.9 L [place] % (Auto) 17.1 H Eos % (Auto) 3.3 Baso % (A
[2023-06-25 19:57] LABS: Osmolality, Urine 117 mOsm/kg (50-1200)
[2023-06-25 20:07] LABS: Kappa\\Lambda Light Chains 0.87 (0.26-1.65); Lambda Light Chain 11.9 mg/L (5.7-26.3)
[2023-06-26 15:19] LABS: Albumin 3.7 g/dL (3.8-4.8); Alpha 1 Globulin 0.3 g/dL (0.2-0.3); Alpha 2 Globulin 0.7 g/dL (0.5-0.9); Beta 1 Globulin 0.4 g/dL (0.4-0.6); Gamma Globulin 0.4 g/dL (0.8-1.7); Interpretation Consistent with; Protein, Total 5.8 g/dL (6.1-8.1)
[2023-06-28 14:17] LABS: Creatinine, Random Urine 16 mg/dL (20-320)
== END 2023-06-24 14:17 | disposition home or self-care (01) | DRG 897 ==
LOC: ANHED 07:49 → ANHIMU 09:20
PROVIDERS: Internal Medicine Nephrology; Physician Assistant; Admitting Provider Chiropractor; Emergency Provider Emergency Medicine; PCP Nurse Practitioner Family; Visit Provider Internal Medicine
DX: F10.139 Alcohol abuse with withdrawal, unspecified (principal); E87.1 Hypo-osmolality and hyponatremia; E87.29 Other acidosis; I10 Essential (primary) hypertension; K21.9 Gastro-esophageal reflux disease without esophagitis; F41.9 Anxiety disorder, unspecified; E78.2 Mixed hyperlipidemia; Z87.891 Personal history of nicotine dependence
CPT/HCPCS: 36415; 80048; 80053; 80076; 80307; 81001; 81050; 82533; 82570; 82948; 83735; 83883; 83930; 83935; 84155; 84156; 84165; 84166; 84295; 84300; 84443; 84540; 85025; 85027; 85610; 85730; 93005; 96374; 96375; 99285; A9270; J2060; J2405; J3411; J3475; J7030; J7060

== ENCOUNTER → 2023-07-19 12:06 | Outpatient (CLI) | payer MEDICARE, SELFPAY ==
--- NOTE | ~2023-07-19 | XR_ITS ---
EXAMINATION: XR lumbar spine 2-3V DATE: 07/19/2023 12:51 INDICATION: Low back pain TECHNIQUE: Anteroposterior and lateral views of the lumbar spine, and cone-down lateral view of the l umbosacral junction were obtained. COMPARISON: 02/07/2007 FINDINGS: There are 15 degrees of thoracolumbar levoscoliosis. Bone alignment is normal. There is no fracture. There is severe loss of intervertebral disc space height at L3-4, L4-5, and L5-S1. The vert ebral body heights are maintained. Small degenerative osteophytes project from the anterior endplates of multiple vertebral bodies. There is moderate facet joint osteoarthritis of the lower lumbar spine . IMPRESSION: 1. Moderate to severe lumbar spondylosis without acute findings. Reviewed, dictated and finalized at location B.
== END ==
PROVIDERS: PCP Nurse Practitioner Family; Visit Provider Nurse Practitioner Family
DX: M47.896 Other spondylosis, lumbar region (principal); F10.90 Alcohol use, unspecified, uncomplicated
CPT/HCPCS: 72100

== ENCOUNTER 2024-01-14 13:32 | Emergency (ER) | payer MEDICARE, SELFPAY ==
--- NOTE | ~2024-01-14 | XR_ITS ---
EXAM: XR knee LT min 4V DATE: 01/14/2024 14:30 HISTORY: laceration from chain saw on proximal anterior knee . COMPARISON: None available. FINDINGS: Normal mineralization. No fracture or dislocation. No lytic or blastic lesion. Mild mild t ricompartmental knee osteoarthritis. Old MFC osteochondral lesion. No erosion or periosteal change. S uprapatellar anterior soft tissue defect. IMPRESSION: No acute osseous finding in the left knee. Reviewed, dictated and finalized at location K. PER INSTALLER
[2024-01-14 13:42] VITALS: BP 117/72; PULSE 77; RESP 22; TEMP 36.9; O2SAT 98
[2024-01-14] MEDS: TETANUS,DIPHTHERIA,AC PERTUSSIS ADULT (0.5 ML) BOOSTRIX IM (14:36)
--- NOTE | 2024-01-14 15:23 | ED.WOUNDLAC ---
HPI - Wound/Laceration General Chief Complaint: Wound/Laceration Stated Complaint: leg wound Time Seen by Provider: 01/14/24 13:47 History of Present Illness HPI narrative: 68-year-old male presents to the emergency department for laceration above his left knee that occurred prior to arrival. Patient states he was cutting up a tree when he tripped, slipped and cut himself on the chain saw he was using to cut the tree. Denies difficulty with range of motion of his knee, Other injuries acquired. Tetanus is not up-to-date. Related Data Allergies Allergy/AdvReac Type Severity Reaction Status Date / Time No Known Allergies Allergy Verified 01/14/24 13:51 Review of Systems Review of Systems: CONSTITUTIONAL: Denies fever, chills, or sweats. EYES: Denies visual changes, redness, or discharge. ENT: Denies rhinorrhea, congestion, sore throat, or otalgia. CARDIOVASCULAR: Denies chest pain, palpitations, or edema. RESPIRATORY: Denies cough or dyspnea. GASTROINTESTINAL: Denies abdominal pain, nausea, vomiting, or diarrhea. GENITOURINARY: Denies dysuria or hematuria. SKIN: See HPI MUSCULOSKELETAL: Denies back pain, joint pain, or myalgia. NEUROLOGIC: Denies headache, numbness, or weakness. PSYCHIATRIC: Denies anxiety or depression. [facility] Past Medical History Medical History Alcohol abuse Anxiety disorder Gastroesophageal reflux disease Hypertension Mixed hyperlipidemia Surgical History Surgical History History of sinus surgery Family History Family History Father Family history of heart disease in male family member before age 55, Onset Age: 75 Hypertension Other , 10/2021 No problems noted. Mother Acute myocardial infarction Social History Social History Social History: Surrogate medical decision maker: Portia Gaviria, daughter. Code status: Full code. Smoking packs per day: 1 Smoking cigarettes per day: 20.0 Years smoked: 20 Smoking pack-years: 20.00 Smoking status: Former smoker Tobacco type: cigarettes Second hand tobacco smoke exposure: Yes Smoking end date: 11/14/77 Alcohol intake: current Alcohol use details: 6 to 12 beers a day. Substance use: never Substance use type: does not use Lack of Transportation: No Lack of Food: Never True Current Housing: I Have Housing Concerned About Future Housing: No Difficulty Paying Gas/Electric Bills: No Difficulty Paying for Meds: No Currently Unemployed: No Education: High School Diploma/GED Difficulty w/ Childcare or Family Care: No Additional living arrangements comments: Lives in [place]. Additional occupation/education comments: Retired. Spiritual care concerns: No Exam Narrative: GENERAL: Well-appearing, well-nourished, and in no acute distress. HEAD: Normocephalic, atraumatic. NECK: Supple. CHEST: Clear to auscultation. No respiratory distress. HEART: Regular rate and rhythm. No murmur heard. Normal peripheral pulses. ABDOMEN: Soft, nontender, nondistended, normal active bowel sounds. EXTREMITIES: Normal range of motion. No edema. SKIN: 10 cm laceration just superior to the left knee. Bleeding controlled. No deep structures or foreign bodies visualized including bone, tendons or vessels. Laceration extends into adipose tissue. Full range of motion of knee. DP pulse 2 +. Cap refill less than 2. Sensation intact. NEURO: No focal deficits. Alert and oriented x3 Course Vital Signs Vital signs: Vital Signs Temperature 98.5 F 01/14/24 13:42 Pulse Rate 77 01/14/24 13:42 Respiratory Rate 22 H 01/14/24 13:42 Blood Pressure 117/72 01/14/24 13:42 Pulse Oximetry 98 01/14/24 13:42 Oxygen Delivery Room Air 01/14/24 13:42
== END 2024-01-14 15:42 | disposition home or self-care (01) ==
PROVIDERS: Emergency Provider Physician Assistant; PCP Nurse Practitioner Family
DX: S81.012A Laceration without foreign body, left knee, initial encounter (principal); Z23 Encounter for immunization; I10 Essential (primary) hypertension; E78.2 Mixed hyperlipidemia; K21.9 Gastro-esophageal reflux disease without esophagitis; Z87.891 Personal history of nicotine dependence; W29.3XXA Contact with powered garden and outdoor hand tools and machinery, initial encounter
CPT/HCPCS: 12004; 73564; 90471; 90715; 99283

== ENCOUNTER 2024-01-21 08:10 | Emergency (ER) | payer MEDICARE, SELFPAY ==
[2024-01-21 08:24] VITALS: BP 140/80; PULSE 66; RESP 16; TEMP 37; O2SAT 99
--- NOTE | 2024-01-21 08:24 | ED.SKABFB ---
HPI - Skin/Abscess/Foreign Bdy General Chief complaint: Skin/Abscess/Foreign Body Stated complaint: suture removal Time Seen by Provider: 01/21/24 08:38 Source: patient and RN notes reviewed Mode of arrival: ambulatory Limitations: no limitations History of Present Illness HPI narrative: 68-year-old male presents concern for suture removal. Reports sutures placed 7 days ago to the left knee. He reports he has been cleaning it and using Neosporin twice daily. He reports he has taken the antibiotic he was given as directed. He reports some redness surrounding the wound, denies drainage. Denies any other complications. Related Data Allergies Allergy/AdvReac Type Severity Reaction Status Date / Time No Known Allergies Allergy Verified 01/21/24 08:24 Review of Systems Review of Systems: CONSTITUTIONAL: Denies malaise, chills, sweats, or fever. SKIN: Reports healing laceration to the right knee with intact sutures MUSCULOSKELETAL: Denies muscle skeletal pain NEUROLOGIC: Denies numbness, weakness All systems reviewed & are unremarkable except as noted in HPI and below PMFSH Past Medical History Medical History Alcohol abuse Anxiety disorder Gastroesophageal reflux disease Hypertension Mixed hyperlipidemia Surgical History Surgical History History of sinus surgery Family History Family History Father Family history of heart disease in male family member before age 55, Onset Age: 75 Hypertension Other , 10/2021 No problems noted. Mother Acute myocardial infarction Social History Social History Social History: Surrogate medical decision maker: Portia Gaviria, daughter. Code status: Full code. Smoking packs per day: 1 Smoking cigarettes per day: 20.0 Years smoked: 20 Smoking pack-years: 20.00 Smoking status: Former smoker Tobacco type: cigarettes Second hand tobacco smoke exposure: Yes Smoking end date: 11/14/77 Alcohol intake: current Alcohol use details: 6 to 12 beers a day. Substance use: never Substance use type: does not use Lack of Transportation: No Lack of Food: Never True Current Housing: I Have Housing Concerned About Future Housing: No Difficulty Paying Gas/Electric Bills: No Difficulty Paying for Meds: No Currently Unemployed: No Education: High School Diploma/GED Difficulty w/ Childcare or Family Care: No Additional living arrangements comments: Lives in [place]. Additional occupation/education comments: Retired. Spiritual care concerns: No Comments At time of signature, agree with nursing past medical, surgical, social and family history. There is no relevant family history pertinent to the presenting complaint Exam Narrative: GENERAL: Well-appearing, well-nourished, and in no acute distress. HEAD: Normocephalic, atraumatic. EYES: PERRLA, conjunctivae clear, and EOMI. ENT: Mucous membranes moist. NECK: Supple. No lymphadenopathy CHEST: Clear to auscultation. No respiratory distress. HEART: Regular rate and rhythm. SKIN: Warm, dry. Left knee knee wound with 10 sutures intact, erythema surrounding each suture injury point and the wound itself, wound is fairly approximated however healing tissue is mildly gaping NEURO: Alert and oriented x3. PSYCH: Normal mood and affect Course Course Emergency Course: Healing tissue is mildly gaping, I do not feel that leaving the sutures in any longer will be beneficial to healing. Sutures appear to be irritating the skin. I will remove sutures and place Steri-Strips, sick Steri-Strips placed on the wound. Patient given instructions to remove Steri-Strips 3-4 days. Patient is aware of diagnosis, understands and agrees to treatment plan.
== END 2024-01-21 08:59 | disposition home or self-care (01) ==
PROVIDERS: Emergency Provider Nurse Practitioner; PCP Nurse Practitioner Family
DX: S81.012D Laceration without foreign body, left knee, subsequent encounter (principal); X58.XXXD Exposure to other specified factors, subsequent encounter; K21.9 Gastro-esophageal reflux disease without esophagitis; I10 Essential (primary) hypertension; E78.2 Mixed hyperlipidemia; Z87.891 Personal history of nicotine dependence
CPT/HCPCS: 99211; G0463

== ENCOUNTER 2024-03-15 08:15 | Outpatient (CLI) | payer MEDICARE, SELFPAY ==
--- NOTE | ~2024-03-15 | XR_ITS ---
XR shoulder RT min 2V 03/15/2024 08:34 Indication: Right shoulder pain Procedure: 4 views right shoulder Comparison: No prior studies for comparison. Findings: There is severe osteoarthritis of the right shoulder at the glenohumeral joint. There is a loose body superior to the joint. There is mild acromioclavicular osteoarthritis. No fracture or trau matic malalignment. No soft tissue abnormality. No foreign bodies. 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 Reviewed, dictated and finalized at location B. Impression: 1: Polyarticular osteoarthritis of the right shoulder, severe at the glenohumer al joint.
--- NOTE | ~2024-03-15 | XR_ITS ---
XR shoulder LT min 2V 03/15/2024 08:34 Indication: Left shoulder pain Procedure: 4 views left shoulder Comparison: No prior studies for comparison. Findings: Moderate polyarticular osteoarthritis of the left shoulder. Prominent marginal osteophytes inferior aspect of the joint. Osteopenia. No acute fracture or traumatic malalignment. No focal soft tissue abnormality. Impression: 1: Moderate polyarticular osteoarthritis of the left shoulder. Reviewed, dictated and finalized at location B. Impression: 1: Moderate polyarticular osteoarthritis of the left shoulder.
== END 2024-03-15 08:16 ==
LOC: MICIMG 08:18
PROVIDERS: PCP Nurse Practitioner Family; Visit Provider Nurse Practitioner Family
DX: M19.012 Primary osteoarthritis, left shoulder (principal); M19.011 Primary osteoarthritis, right shoulder
CPT/HCPCS: 73030